=== PATIENT | female | born 1970 | race Caucasian/White ===

== ENCOUNTER 2020-08-10 07:32 | Outpatient (CLI) | payer MEDICARE, MEDICAID, SELFPAY | END 2020-08-10 07:33 | disposition home or self-care (01) | PROVIDERS: PCP Family Medicine; Visit Provider Family Medicine | DX: Z01.10 Encounter for examination of ears and hearing without abnormal findings (principal) | CPT/HCPCS: 92557; 92567 ==

== ENCOUNTER 2021-08-11 08:45 | Outpatient (CLI) | payer MEDICARE, MEDICAID, SELFPAY | END 2021-08-11 08:46 | disposition home or self-care (01) | LOC: ANHAUDIO 08:46 | PROVIDERS: PCP Family Medicine; Visit Provider Family Medicine | DX: Z01.10 Encounter for examination of ears and hearing without abnormal findings (principal); H90.3 Sensorineural hearing loss, bilateral | CPT/HCPCS: 92557; 92567 ==

== ENCOUNTER 2022-08-14 08:54 | Outpatient (CLI) | payer MEDICARE, MEDICAID, SELFPAY | END 2022-08-14 08:55 | disposition home or self-care (01) | LOC: ANHAUDIO 08:55 | PROVIDERS: PCP Family Medicine; Visit Provider Family Medicine | DX: F80.9 Developmental disorder of speech and language, unspecified (principal); H90.3 Sensorineural hearing loss, bilateral | CPT/HCPCS: 92557; 92567 ==

== ENCOUNTER 2023-08-15 08:55 | Outpatient (CLI) | payer MEDICARE, MEDICAID, SELFPAY | END 2023-08-15 08:56 | disposition home or self-care (01) | LOC: ANHAUDIO 08:57 | PROVIDERS: PCP Family Medicine; Visit Provider Family Medicine | DX: Z01.10 Encounter for examination of ears and hearing without abnormal findings (principal); H90.3 Sensorineural hearing loss, bilateral | CPT/HCPCS: 92557; 92567 ==

== ENCOUNTER 2024-08-18 07:58 | Outpatient (CLI) | payer MEDICARE, MEDICAID, SELFPAY | END 2024-08-18 07:59 | disposition home or self-care (01) | LOC: ANHAUDIO 07:58 | PROVIDERS: PCP Family Medicine; Visit Provider Family Medicine | DX: Z01.10 Encounter for examination of ears and hearing without abnormal findings (principal); H90.3 Sensorineural hearing loss, bilateral | CPT/HCPCS: 92557; 92567 ==